=== PATIENT | male | born 1985 | race Caucasian/White ===

== ENCOUNTER 2017-04-04 22:30 | Emergency (ER) | payer SELFPAY ==
[~2017-04-04] VITALS: Ht 165.1 cm; Wt 77.0 kg
[~2017-04-04 22:30] MED LIST: Z.0.NO CURRENT MEDS
[2017-04-04 22:33] VITALS: BP 111/62; PULSE 85; RESP 16; TEMP 97.5; O2SAT 98
[2017-04-04] MEDS ORDERED: SODIUM CHLOR 0.9% 1000 ML INJ 1,000 ML IV SCH (23:31)
[2017-04-04] MEDS ORDERED: MORPHINE SULFATE 4 MG/ML INJ IV PUSH ONE (23:45)
[2017-04-04] MEDS ORDERED: SODIUM CHLORIDE 0.9% FLUSH 10 ML FLUSH IV FLUSH PRN (23:45)
[2017-04-04] MEDS ORDERED: ONDANSETRON HCL 4 MG/2 ML VIAL IVP ONE (23:45)
--- NOTE | 2017-04-04 23:50 | PD ---
HPI Chief Complaint: GI Complaint Time Seen by Provider: 23:22 Travel History International Travel<30 days: No Contact w/Intl Traveler<30days: No Traveled to known affect area: No History of Present Illness HPI The patient is a 32-year-old male who presents emergency department for nausea, vomiting, abdominal pain. The patient states his symptoms started on Sunday with nausea and vomiting. He subsequently developed abdominal pain which is located along the sides in the lower quadrants. He has persistent nausea and vomiting with decreased appetite. He denies any diarrhea, notes his last bowel movement was several days ago. He denies any fever, chills, or sweats. He denies any associated dysuria, frequency, or urgency. He denies any history of previous abdominal surgeries, recent international travel, or sick contacts at home. The patient works in concrete construction. He denies the ingestion of any alcohol or illicit drugs. Symptoms are moderate without any alleviating or exacerbating factors. PFSH Past Medical History Medical History: Denies Significant Hx Diminished Hearing: No Tetanus Vaccination: Unknown Past Surgical History Surgical History: No Previous Surgery Social History Alcohol Use: Yes (occ.) Tobacco Use: No Substance Use: Yes (marajuiana.) Allergies-Medications (Allergen,Severity, Reaction): Coded Allergies: No Known Allergies (Unverified , 04/04/17) Reported Meds & Prescriptions Reported Meds & Active Scripts Active Reported No Current Meds (Miscellaneous Medication) Misc Review of Systems Except as stated in HPI: all other systems reviewed are Neg General / Constitutional: No: Fever, Chills Cardiovascular: No: Chest Pain or Discomfort Respiratory: No: Shortness of Breath Gastrointestinal: Positive: Nausea, Vomiting, Abdominal Pain, No: Diarrhea Genitourinary: No: Dysuria Neurologic: No: Weakness Physical Exam Narrative GENERAL: Awake, alert, nontoxic-appearing 32-year-old male who appears his stated age and is in no acute respiratory distress. SKIN: Focused skin assessment warm/dry. HEAD: Atraumatic. Normocephalic. EYES: Pupils equal and round. No scleral icterus. No injection or drainage. ENT: No nasal bleeding or discharge. Slightly dry mucous members. NECK: Trachea midline. No JVD. CARDIOVASCULAR: Regular rate and rhythm. No murmur appreciated. RESPIRATORY: No accessory muscle use. Clear to auscultation. Breath sounds equal bilaterally. GASTROINTESTINAL: Abdomen soft, minimal tenderness in the left lower quadrant. No rebound tenderness, guarding, or rigidity. MUSCULOSKELETAL: No obvious deformities. No clubbing. No cyanosis. No edema. NEUROLOGICAL: Awake and alert. No obvious cranial nerve deficits. Motor grossly within normal limits. Normal speech. PSYCHIATRIC: Appropriate mood and affect; insight and judgment normal. Data Data Last Documented VS Vital Signs Date Time Temp Pulse Resp B/P Pulse Ox O2 Delivery O2 Flow Rate FiO2 04/05/17 00:46 16 04/05/17 00:45 78 120/70 98 Room Air 04/04/17 22:33 97.5 Orders Complete Blood Count With Diff (04/04/17 23:31) Comprehensive Metabolic Panel (04/04/17 23:31) Lipase (04/04/17 23:31) Urinalysis - C+S If Indicated (04/04/17 23:31) Iv Access Insert/Monitor (04/04/17 23:31) Ecg Monitoring (04/04/17 23:31) Oximetry (04/04/17 23:31) Morphine Inj (Morphine Inj) (04/04/17 23:45) Ondansetron Inj (Zofran Inj) (04/04/17 23:45) Sodium Chlor 0.9% 1000 Ml Inj (Ns 1000 M (04/04/17 23:31) Sodium Chloride 0.9% Flush (Ns Flush) (04/04/17 23:45) Labs Laboratory Tests Test 04/04/17 23:45 White Blood Count 9.8 TH/MM3 Red Blood Count 5.24 MIL/MM3 Hemoglobin 15.6 GM/DL Hematocrit 45.7 % Mean Corpuscular Volume 87.3 FL Mean Corpuscular Hemoglobin 29.7 PG Mean Corpuscular Hemoglobin 34.0 % Concent Red Cell Distribution Width 12.7 % Platelet Count 325 TH/MM3 Mean Platelet Volume 7.2 FL Neutrophils (%) (Auto) 67.0 % Lymphocytes (%) (Auto) 23.3 % Monocytes (%) (Auto) 6.6 % Eosinophils (%) (Auto) 2.1 % Basophils (%) (Auto) 1.0 % Neutrophils # (Auto) 6.6 TH/MM3 Lymphocytes # (Auto) 2.3 TH/MM3 Monocytes # (Auto) 0.6 TH/MM3 Eosinophils # (Auto) 0.2 TH/MM3 Basophils # (Auto) 0.1 TH/MM3 CBC Comment DIFF FINAL Differential Comment Urine Color YELLOW Urine Turbidity CLEAR Urine pH 5.5 Urine Specific [place] 1.015 Urine Protein NEG mg/dL Urine Glucose (UA) NEG mg/dL Urine Ketones TRACE mg/dL Urine Occult Blood NEG Urine Nitrite NEG Urine Bilirubin NEG Urine Urobilinogen LESS THAN 2.0 MG/DL Urine Leukocyte Esterase MOD Urine RBC 1 /hpf Urine WBC 5 /hpf Microscopic Urinalysis Comment CULT NOT INDICATED Sodium Level 135 MEQ/L Potassium Level 3.7 MEQ/L Chloride Level 102 MEQ/L Carbon Dioxide Level 26.3 MEQ/L Anion Gap 7 MEQ/L Blood Urea Nitrogen 19 MG/DL Creatinine 1.14 MG/DL Estimat Glomerular Filtration 75 ML/MIN Rate Random Glucose 93 MG/DL Calcium Level 9.1 MG/DL Total Bilirubin 0.8 MG/DL Aspartate Amino Transf 53 U/L (AST/SGOT) Alanine Aminotransferase 120 U/L (ALT/SGPT) Alkaline Phosphatase 92 U/L Total Protein 7.6 GM/DL Albumin 4.2 GM/DL Lipase 86 U/L MDM Medical Decision Making Medical Screen Exam Complete: Yes Emergency Medical Condition: Yes Medical Record Reviewed: Yes Interpretation(s) Laboratory Tests Test 04/04/17 23:45 White Blood Count 9.8 TH/MM3 Red Blood Count 5.24 MIL/MM3 Hemoglobin 15.6 GM/DL Hematocrit 45.7 % Mean Corpuscular Volume 87.3 FL Mean Corpuscular Hemoglobin 29.7 PG Mean Corpuscular Hemoglobin 34.0 % Concent Red Cell Distribution Width 12.7 % Platelet Count 325 TH/MM3 Mean Platelet Volume 7.2 FL Neutrophils (%) (Auto) 67.0 % Lymphocytes (%) (Auto) 23.3 % Monocytes (%) (Auto) 6.6 % Eosinophils (%) (Auto) 2.1 % Basophils (%) (Auto) 1.0 % Neutrophils # (Auto) 6.6 TH/MM3 Lymphocytes # (Auto) 2.3 TH/MM3 Monocytes # (Auto) 0.6 TH/MM3 Eosinophils # (Auto) 0.2 TH/MM3 Basophils # (Auto) 0.1 TH/MM3 CBC Comment DIFF FINAL Differential Comment Urine Color YELLOW Urine Turbidity CLEAR Urine pH 5.5 Urine Specific [place] 1.015 Urine Protein NEG mg/dL Urine Glucose (UA) NEG mg/dL Urine Ketones TRACE mg/dL Urine Occult Blood NEG Urine Nitrite NEG Urine Bilirubin NEG Urine Urobilinogen LESS THAN 2.0 MG/DL Urine Leukocyte Esterase MOD Urine RBC 1 /hpf Urine WBC 5 /hpf Microscopic Urinalysis Comment CULT NOT INDICATED Sodium Level 135 MEQ/L Potassium Level 3.7 MEQ/L Chloride Level 102 MEQ/L Carbon Dioxide Level 26.3 MEQ/L Anion Gap 7 MEQ/L Blood Urea Nitrogen 19 MG/DL Creatinine 1.14 MG/DL Estimat Glomerular Filtration 75 ML/MIN Rate Random Glucose 93 MG/DL Calcium Level 9.1 MG/DL Total Bilirubin 0.8 MG/DL Aspartate Amino Transf 53 U/L (AST/SGOT) Alanine Aminotransferase 120 U/L (ALT/SGPT) Alkaline Phosphatase 92 U/L Total Protein 7.6 GM/DL Albumin 4.2 GM/DL Lipase 86 U/L Differential Diagnosis Differential diagnosis includes gastritis, gastroenteritis, colitis, pancreatitis, peptic ulcer disease, dehydration, electrolyte abnormality, mesenteric adenitis, atypical appendicitis. Narrative Course IV was established, labs are drawn and sent, and the patient was placed on cardiac telemetry monitoring and continuous pulse oximetry monitoring. The patient was administered morphine, Zofran, and IV fluids. Lipase level was sent to lab. The patient's white count is unremarkable. LFTs and lipase are normal. Patient is afebrile, exam is essentially benign, I do not believe this is appendicitis. The patient was reevaluated at 1:15 AM, his pain had resolved and his nausea has significantly improved. He did still have some generalized weakness. The patient is advised to have a clear liquid diet for the next several days, drink plenty fluids, and a follow-up with his primary physician. Diagnosis Primary Impression: Gastritis Qualified Code: K29.00 - Acute gastritis, presence of bleeding unspecified, unspecified gastritis type Additional Impression: Nausea & vomiting Qualified Code: R11.14 - Bilious vomiting with nausea Patient Instructions: General Instructions Additional Instructions: Work issues for 2 days. Clear liquid diet and advance as tolerated. Medications as directed. Follow-up with your primary physician. Return if symptoms worsen or progress. Med/Other Pt SpecificInfo: Prescription(s) given Scripts Dicyclomine (Bentyl)10 Mg Cap10 Mg PO QID #12 CAP Ref 0 Prov:Stuart Dennison MD 04/05/17 Promethazine (Phenergan)25 Mg Urfbob31 Mg PO Q6H PRN (NAUSEA OR VOMITING) #10 TAB Ref 0 Prov:Stuart Dennison MD 04/05/17 Disposition: 01 DISCHARGE HOME Condition: Stable Stuart Dennison MD Apr 04, 2017 23:50
[2017-04-05 00:01] LABS: AUTOMATED NEUTROPHIL # 6.6 TH/MM3 (1.8-7.7); BASOPHIL # 0.1 TH/MM3 (0-0.2); EOSINOPHIL # 0.2 TH/MM3 (0-0.4); EOSINOPHIL % 2.1 % (0.0-4.0); HEMATOCRIT 45.7 % (39.0-51.0); HEMO FLAGS DIFF FINAL; LYMPH % 23.3 % (9.0-44.0); LYMPHOCYTE # 2.3 TH/MM3 (1.0-4.8); MEAN CELL VOLUME 87.3 FL (80.0-100.0); MEAN CORPUSCULAR HEMOGLOBIN 29.7 PG (27.0-34.0); MONO % 6.6 % (0.0-8.0); PLATELET COUNT 325 TH/MM3 (150-450); RED BLOOD COUNT 5.24 MIL/MM3 (4.50-5.90); RED CELL DISTRIBUTION WIDTH 12.7 % (11.6-17.2); WHITE BLOOD COUNT 9.8 TH/MM3 (4.0-11.0)
[2017-04-05 00:03] LABS: BLOOD, URINE NEG (NEG); COMMENT (UR) CULT NOT INDICATED; CULTURE IF INDICATED CULT NOT INDICATED; GLUCOSE,URINE NEG (NEG); KETONE, URINE TRACE mg/dL (NEG); NITRITE,URINE NEG (NEG); PH, URINE 5.5 (5.0-8.5); URINE COLOR YELLOW (YELLW/STRAW)
[2017-04-05 00:25] LABS: ANION GAP 7 MEQ/L (5-15); AST (GOT) 53 U/L (15-37); BICARBONATE 26.3 MEQ/L (21.0-32.0); BLOOD UREA NITROGEN 19 MG/DL (7-18); CHLORIDE 102 MEQ/L (98-107); GLOMERULAR FILTRATION RATE 75 ML/MIN (>89); POTASSIUM 3.7 MEQ/L (3.5-5.1); SODIUM (NA) 135 MEQ/L (136-145)
[2017-04-05 00:26] LABS: ALT (GPT) 120 U/L (12-78)
[2017-04-05 00:28] LABS: ALKALINE PHOSPHATASE 92 U/L (45-117); TOTAL BILIRUBIN ADULT 0.8 MG/DL (0.2-1.0)
[2017-04-05 00:45] VITALS: BP 120/70; PULSE 78; RESP 16; O2SAT 98
[2017-04-05 00:46] VITALS: RESP 16
[2017-04-05] MEDS ORDERED: PROM25TA10 PO (01:23)
[2017-04-05] MEDS ORDERED: DICY10 PO (01:23)
== END 2017-04-05 01:51 | disposition home or self-care (01) ==
LOC: NEPE 22:30
DX: K29.70 Gastritis, unspecified, without bleeding (principal); R53.1 Weakness
CPT/HCPCS: 80053; 81001; 83690; 85025; 96361; 96374; 96375; 99284; J2270; J2405; J7030